=== PATIENT | male | born 1945 | race African-American/Black ===

== ENCOUNTER 2017-06-02 09:22 | Emergency (ER) | payer OTHER ==
[~2017-06-02] VITALS: Ht 172.7 cm; Wt 85.0 kg
[2017-06-02] MEDS ORDERED: SODIUM CHLORIDE 0.9% 500 ML IV ONE (09:30)
[2017-06-02 09:58] LABS: BASOPHILS % 0.5 % (0.0-2.0); EOSINOPHILS % 3.4 % (0.0-5.0); HEMATOCRIT. 39.4 % (42.0-52.0); INR 1.1; LYMPHOCYTES % 11.3 % (20.0-50.0); MEAN CORPUSCULAR VOLUME 87.6 fL (80.0-94.0); MEAN PLATELET VOLUME 7.8 fl (7.4-10.4); MONOCYTES % 8.1 % (2.0-8.0); NEUTROPHILS % 76.7 % (40.0-76.0); PARTIAL THROMBOPLASTIN TIME 24.5 sec (23.4-31.0); PLATELET 179 x1000/uL (130-400); PROTHROMBIN TIME 11.3 sec (9.4-11.6); RED CELL DISTRIBUTION WIDTH 19.2 % (11.6-14.6)
[2017-06-02 10:08] LABS: CARBON DIOXIDE 28 mEq/L (21-32); CHLORIDE 106 mEq/L (98-107); TROPONIN I 0.08 ng/mL (0.00-0.04)
[2017-06-02 10:16] VITALS: BP 114/64
[2017-06-02 12:41] LABS: CREATINE KINASE 198 IU/L (39-308)
== END 2017-06-02 15:10 | disposition left against medical advice (07) ==
LOC: ER 09:22 → EDBEDREQ 10:35 → SUPCPDRO 14:14 → ER 15:10 → CANRESERV 17:25 → ENRESERV 17:25 → CANBEDREQ 20:30
DX: I11.0 Hypertensive heart disease with heart failure (principal); I50.43 Acute on chronic combined systolic (congestive) and diastolic (congestive) heart failure; R55 Syncope and collapse; E05.90 Thyrotoxicosis, unspecified without thyrotoxic crisis or storm; E78.00 Pure hypercholesterolemia, unspecified; D64.9 Anemia, unspecified; R00.0 Tachycardia, unspecified; N28.9 Disorder of kidney and ureter, unspecified
CPT/HCPCS: 36415; 70450; 71010; 76770; 80053; 82550; 82553; 83735; 83880; 84484; 85025; 85610; 85730; 93005; 96360; 99291; J7040

== ENCOUNTER 2018-05-01 12:16 | Inpatient (IN) | payer MEDICARE, OTHER ==
[~2018-05-01] VITALS: Ht 180.3 cm; Wt 74.4 kg
[2018-05-01 13:38] LABS: BASOPHILS % 0.7 % (0.0-2.0); EOSINOPHILS % 2.1 % (0.0-5.0); HEMATOCRIT. 42.8 % (42.0-52.0); HEMOGLOBIN. 14.2 g/dL (14.0-18.0); LYMPHOCYTES % 31.9 % (20.0-50.0); MEAN CORPUSCULAR HEMOGLOBIN 29.9 pg (28.0-32.0); MEAN PLATELET VOLUME 8.3 fl (7.4-10.4); MONOCYTES % 7.1 % (2.0-8.0); NEUTROPHILS % 58.2 % (40.0-76.0); PLATELET 181 x1000/uL (130-400); RED BLOOD CELL COUNT 4.76 mill/uL (4.7-6.1); RED CELL DISTRIBUTION WIDTH 16.6 % (11.6-14.6)
[2018-05-01 13:45] LABS: PARTIAL THROMBOPLASTIN TIME 25.9 sec (23.4-31.0); PROTHROMBIN TIME 10.1 sec (9.1-11.1)
[2018-05-01 13:47] LABS: CHLORIDE 108 mEq/L (98-107)
[2018-05-01] MEDS ORDERED: GUAIFENESIN 200MG/10ML SUGAR FREE UDC PO PRN (16:30)
[2018-05-01] MEDS ORDERED: ONDANSETRON HCL 4MG/2ML INJ IV PRN (16:30)
[2018-05-01] MEDS ORDERED: DOCUSATE SODIUM 100MG CAPSULE PO PRN (16:30)
[2018-05-01] MEDS ORDERED: KETOROLAC 15MG/ML VIAL IV PRN (16:30)
[2018-05-01] MEDS ORDERED: LORAZEPAM 0.5MG TABLET PO PRN (16:30)
[2018-05-01] MEDS ORDERED: CLONIDINE 0.2MG TABLET PO PRN (16:30)
[2018-05-01] MEDS ORDERED: NITROGLYCERIN 0.4MG TABLET SL SL PRN (16:30)
[2018-05-01] MEDS ORDERED: IPRATROPIUM/ALBUTEROL 0.5-3(2.5)MG/3ML NEB INH PRN (16:30)
[2018-05-01] MEDS ORDERED: ACETAMINOPHEN 325MG TABLET PO PRN (16:30)
[2018-05-01] MEDS ORDERED: MAGNESIUM/ALUMINUM HYDROXIDE/SIMETHICONE 30ML UDC PO PRN (16:30)
[2018-05-01] MEDS: AMLODIPINE 10MG TABLET PO SCH ×2 (17:53→22:55)
[2018-05-01 20:00] VITALS: BP 137/76
[2018-05-01] MEDS ORDERED: ZOLPIDEM TARTRATE 5MG TABLET PO PRN (20:00)
[2018-05-01] MEDS ORDERED: ENOXAPARIN 40MG/0.4ML SYR SUBCUT SCH (20:00)
[2018-05-01] MEDS: METOPROLOL TARTRATE 25MG TABLET PO SCH (21:00)
[2018-05-01] MEDS ORDERED: NA PHOS,M-B/NA PHOS,DI-BA ENEMA 118ML PR PRN (21:00)
[2018-05-01] MEDS: HYDRALAZINE HCL 50MG TABLET PO SCH (22:00)
[2018-05-01] MEDS: FAMOTIDINE 20MG TABLET PO SCH (22:54)
[2018-05-01 23:55] LABS: CREATINE KINASE MB FRACTION 5.4 ng/mL (0.5-3.6)
[2018-05-02] VITALS: BP 153/75
[2018-05-02 04:00] VITALS: BP 113/51
[2018-05-02] MEDS: HYDRALAZINE HCL 50MG TABLET PO SCH (05:28)
[2018-05-02 08:00] VITALS: BP 146/80
[2018-05-02 08:49] LABS: CREATINE KINASE MB FRACTION 5.3 ng/mL (0.5-3.6)
[2018-05-02] MEDS: FAMOTIDINE 20MG TABLET PO SCH (08:53)
[2018-05-02] MEDS: METOPROLOL TARTRATE 25MG TABLET PO SCH (08:54)
[2018-05-02] MEDS ORDERED: ASPIRIN 325MG EC TABLET PO SCH (09:00)
[2018-05-02 10:05] VITALS: BP 146/80
[2018-05-02 10:15] VITALS: BP 146/80
== END 2018-05-02 12:00 | disposition home or self-care (01) | DRG 313 ==
LOC: ER 12:23 → 5WST 14:30 → EDBEDREQTM 14:34 → EDBEDREQ 14:34 → ENRESERV 17:12
PROVIDERS: ADMIT Internal Medicine; ATTEND Internal Medicine
DX: R07.89 Other chest pain (principal); N17.0 Acute kidney failure with tubular necrosis; I13.0 Hypertensive heart and chronic kidney disease with heart failure and stage 1 through stage 4 chronic kidney disease, or unspecified chronic kidney disease; M62.82 Rhabdomyolysis; E78.00 Pure hypercholesterolemia, unspecified; I25.10 Atherosclerotic heart disease of native coronary artery without angina pectoris; E78.5 Hyperlipidemia, unspecified; I48.91 Unspecified atrial fibrillation; I50.9 Heart failure, unspecified; N18.9 Chronic kidney disease, unspecified; Z86.73 Personal history of transient ischemic attack (TIA), and cerebral infarction without residual deficits; I25.2 Old myocardial infarction; Z82.49 Family history of ischemic heart disease and other diseases of the circulatory system
CPT/HCPCS: 36415; 71045; 76770; 80061; 82550; 82553; 83036; 83880; 84484; 93005; 93970; 99285; G0482; J1650